=== PATIENT | female | born 1980 | race African-American/Black ===

== ENCOUNTER 2020-10-30 09:02 | Outpatient (CLI) | payer BC ==
--- NOTE | 2020-10-30 09:46 | ULT ---
US Breast Limited Lt: 10/30/2020 12:00 AM CLINICAL INDICATION: Palpable breast mass 9:00 position of the left breast. The patient reports not d oing self breast exams and this was recently discovered by her ordering clinician. COMPARISON: Mammogram 10/30/2020 TECHNIQUE: Multiplanar grayscale and color Doppler images were obtained of the breast. FINDINGS: There is a well-circumscribed solid mass to correspond to the mammographic abnormality at the 9:00 po sition of the left breast approximately 10 cm from nipple. This measures 4.4 cm in greatest dimension. This mass most likely represents a fibroadenoma. No suspicious mass is seen. No suspici ous shadowing is seen. No cyst is identified. IMPRESSION: BI-RADS Category 3-probably benign findings. Six-month follow-up ultrasound is recommende d to ensure stability of the left breast mass.
--- NOTE | 2020-10-30 09:46 | MMO ---
Bilateral MAMMO Bilat Diag [facility]. CLINICAL HISTORY: Patient is 40 years old and is seen for diagnostic exam and lump or thickening in the lower-inner region of the left breast. The patient has the following family history of breast cancer: great aunt, at age 55, malignant (generic), MATERNAL. The patient has no personal history of cancer. VIEWS: The views performed were: bilateral craniocaudal with tomosynthesis; bilateral mediolateral oblique with tomosynthesis; and bilateral mediolateral with tomosynthesis. FILMS COMPARED: The present examination has been compared to a prior imaging study performed at [facility] on 10/30/2020. This study has been interpreted with the assistance of computer-aided detection. MAMMOGRAM FINDINGS: There are scattered fibroglandular densities. There is an oval mass measuring 5.1 cm with circumscribed margins seen in the posterior region of the left breast at 9 o'clock. In the right breast, there are no suspicious masses, calcifications or areas of architectural distortion. IMPRESSION: MASS IN THE LEFT BREAST IS PROBABLY BENIGN. FOLLOW-UP IN 6 MONTHS IS RECOMMENDED. THE RESULTS OF THIS EXAM WERE SENT TO THE PATIENT. ACR BI-RADS Category 3 - Probably benign finding - short interval follow-up suggested. [facility] will notify the patient of the need for additional imaging services. MAMMOGRAPHY NOTE: 1. A negative mammogram report should not delay a biopsy if a dominant of clinically suspicious mass is present. 2. Approximately 10% to 15% of breast cancers are not detected by mammography. 3. Adenosis and dense breasts may obscure an underlying neoplasm. Reported by: LIAM JOAQUIN MD Electonically Signed: [id number]
== END 2020-10-30 09:03 | disposition home or self-care (01) ==
LOC: BICMAMMO 09:02
PROVIDERS: ATTEND Physician Assistant
DX: N63.25 Unspecified lump in the left breast, overlapping quadrants (principal)
CPT/HCPCS: 77066; G0279

== ENCOUNTER 2021-07-02 13:01 | Emergency (ER) | payer OTHER, BC ==
[2021-07-02] MEDS ORDERED: Ketorolac Tromethamine 30 MG/ML VIAL ONE (13:39)
[2021-07-02] MEDS ORDERED: Acetaminophen 500 MG TAB ONE (13:39)
== END 2021-07-02 14:26 | disposition home or self-care (01) ==
LOC: ERS 13:01
DX: R51.9 Headache, unspecified (principal); F17.200 Nicotine dependence, unspecified, uncomplicated; E11.9 Type 2 diabetes mellitus without complications; D64.9 Anemia, unspecified; Z79.84 Long term (current) use of oral hypoglycemic drugs; Z79.82 Long term (current) use of aspirin; Z79.899 Other long term (current) drug therapy; V89.2XXA Person injured in unspecified motor-vehicle accident, traffic, initial encounter
CPT/HCPCS: 70450; 72125; 96372; J1885

== ENCOUNTER 2021-09-06 08:46 | Outpatient (CLI) | payer BC | END 2021-09-06 08:47 | disposition home or self-care (01) | LOC: BICULT 08:46 | PROVIDERS: ATTEND Physician Assistant | DX: N63.24 Unspecified lump in the left breast, lower inner quadrant (principal) ==

== ENCOUNTER 2021-11-18 10:59 | Outpatient (CLI) | payer BC ==
[2021-11-18 13:05] LABS: #Eosinphils 0.2 10x3/uL (0.0-0.5); #Monocytes 0.9 10x3/uL (0.0-1.1); #Neutrophils 5.1 10x3/uL (1.5-8.4); %Basophils 0.4 % (0.0-2.0); %Eosinophils 2.1 % (0.0-6.0); %Lymphocytes 33.3 % (18.0-47.0); %Monocytes 9.7 % (0.0-10.0); %Neutrophils 53.8 % (40.0-75.0); Hemoglobin 8.4 g/dL (12.0-15.5); Mean Corpuscular HGB CONC 29.1 g/dL (32.0-36.0); Mean Corpuscular Hemoglobin 26.3 pg (27.0-33.0); Mean Corpuscular Volume 90.6 fl (81.6-98.3); Mean Platelet Volume 10.2 fl (7.4-10.4); Platelet Count 468 10x3/uL (150-450); RBC Distribution Width 14.4 % (11.5-14.5); Red Blood Cell (RBC) Count 3.19 10x6/uL (3.90-5.03); White Blood Cell (WBC) Count 9.6 10x3/uL (3.5-10.5)
[2021-11-18 13:32] LABS: Anion Gap 16 mmol/L (10-20); BUN (Urea Nitrogen) 9 mg/dL (7.0-18.7); Calc. Creatinine Clearance 0 mL/min (70-130); Calcium 9.4 mg/dL (7.8-10.44); Carbon Dioxide 21 mmol/L (22-29); Chloride 106 mmol/L (98-107); Glucose 126 mg/dL (70-105); Potassium 4.1 mmol/L (3.5-5.1); Sodium 139 mmol/L (136-145)
[2021-11-18 13:33] LABS: Anisocytosis SLIGHT = 6-15 cells (100X) (0-5/hpf); Hypochromia SLIGHT = 6-15 cells (100X) (0-5/hpf); Platelet Morphology Comment Appears Increased
== END 2021-11-18 11:00 | disposition home or self-care (01) ==
LOC: LABBT 10:59
PROVIDERS: ATTEND Specialist
DX: Z01.812 Encounter for preprocedural laboratory examination (principal); N63.20 Unspecified lump in the left breast, unspecified quadrant
CPT/HCPCS: 80048; 85025

== ENCOUNTER 2021-11-21 05:47 | Day surgery (SDC) | payer BC ==
[2021-11-18 14:09] VITALS: BMI 42.9
[2021-11-21] MEDS ORDERED: Acetaminophen 500 MG TAB ONE (06:01)
[2021-11-21] MEDS ORDERED: Ketorolac Tromethamine 30 MG/ML VIAL ONE (06:01)
[2021-11-21] MEDS ORDERED: Xylocaine 1% w/ Epi 1:100K 10 ML VIAL ONE ×2 (06:38→08:08)
[2021-11-21] MEDS ORDERED: Bupivacaine 0.25% HCL 30 ML VIAL ONE (06:38)
[2021-11-21] MEDS ORDERED: Fentanyl 250 MCG/5 ML VIAL ONE (06:56)
[2021-11-21] MEDS ORDERED: Famotidine 20 MG TAB ONE (07:16)
[2021-11-21] MEDS ORDERED: Famotidine/PF 20 mg/2ml Vial ONE (07:16)
[2021-11-21] MEDS ORDERED: ceFAZolin Sodium (SDC) 2 GM/100 ML BAG ONE (07:31)
[2021-11-21] MEDS ORDERED: Midazolam HCl 2 mg/2 ml Vial ONE (07:32)
[2021-11-21] MEDS ORDERED: PROPOFOL 200 MG/20 ML VIAL ONE (07:46)
[2021-11-21] MEDS ORDERED: Ondansetron PF 4 MG/2 ML Vial ONE (07:46)
[2021-11-21] MEDS ORDERED: Lidocaine 1% PF 5 ML VIAL ONE (07:46)
== END 2021-11-21 10:05 | disposition home or self-care (01) ==
LOC: SDC 05:47
PROVIDERS: ATTEND Specialist
PROC: 0HBU0ZZ Excision of Left Breast, Open Approach (ICD-10-PCS; principal; 2021-11-21)
DX: D24.2 Benign neoplasm of left breast (principal); N60.22 Fibroadenosis of left breast; E11.9 Type 2 diabetes mellitus without complications; G43.909 Migraine, unspecified, not intractable, without status migrainosus; E66.9 Obesity, unspecified; Z68.41 Body mass index [BMI] 40.0-44.9, adult; Z79.4 Long term (current) use of insulin; Z79.82 Long term (current) use of aspirin; Z79.84 Long term (current) use of oral hypoglycemic drugs; Z79.899 Other long term (current) drug therapy; Z88.8 Allergy status to other drugs, medicaments and biological substances; Z86.16 Personal history of COVID-19
CPT/HCPCS: 36416; 88305; J0690; J1885; J2250; J2405; J2704; J3010; S0020; S0028

== ENCOUNTER 2022-01-29 10:14 | Outpatient (CLI) | payer BC | END 2022-01-29 10:15 | disposition home or self-care (01) | LOC: DTY/OP 10:14 | PROVIDERS: ATTEND Specialist | DX: E66.01 Morbid (severe) obesity due to excess calories (principal) | CPT/HCPCS: 97802 ==

== ENCOUNTER 2022-12-11 08:40 | Outpatient (CLI) | payer BC, OTHER | END 2022-12-11 08:41 | disposition home or self-care (01) | LOC: BICMAMMO 08:40 | PROVIDERS: ATTEND Physician Assistant | DX: Z12.31 Encounter for screening mammogram for malignant neoplasm of breast (principal); Z80.3 Family history of malignant neoplasm of breast | CPT/HCPCS: 77063; 77067 ==